=== PATIENT | female | born 1990 | race Caucasian/White ===

== ENCOUNTER 2018-07-23 11:52 | Emergency (ER) | payer SELFPAY ==
[~2018-07-23] VITALS: Ht 167.6 cm; Wt 80.0 kg
[2018-07-23 15:49] VITALS: BP 108/59
== END 2018-07-23 15:38 | disposition home or self-care (01) ==
LOC: ER 12:22
DX: O26.891 Other specified pregnancy related conditions, first trimester (principal); Z04.1 Encounter for examination and observation following transport accident; Z3A.01 Less than 8 weeks gestation of pregnancy
CPT/HCPCS: 76801; 81025; 99284